=== PATIENT | male | born 1955 | race Caucasian/White ===

== ENCOUNTER 2023-01-04 11:46 | Outpatient (CLI) | payer MEDICARE, SELFPAY ==
--- NOTE | ~2023-01-04 | XR_ITS ---
Clinical Indication: Dyspnea PA and lateral views of the chest: Comparison: None Findings: The lungs are clear, without evidence of focal consolidation or pleural effusion. Cardiome diastinal silhouette is within normal limits. Bones and soft tissues are unremarkable. Impression: Normal chest. Reviewed, dictated and finalized at location . Impression: Normal chest.
== END 2023-01-04 11:47 ==
PROVIDERS: PCP Nurse Practitioner Family; Visit Provider Nurse Practitioner Family
DX: R06.09 Other forms of dyspnea (principal)
CPT/HCPCS: 71046

== ENCOUNTER 2023-06-07 14:32 | Outpatient (CLI) | payer MEDICARE, SELFPAY ==
--- NOTE | ~2023-06-07 | MR_ITS ---
EXAMINATION: MR shoulder LT wo con DATE: 06/07/2023 15:12 INDICATION: Pain in left shoulder . TECHNIQUE: Magnetic resonance imaging (MRI) of the left shoulder was performed without intravenous co ntrast. Sequences included axial PD-weighted FS FSE, coronal oblique PD-weighted FS FSE and T2-weight ed FS FSE, and sagittal oblique T2-weighted FS FSE and T1-weighted FSE. COMPARISON: None. FINDINGS: Coracoacromial arch: Moderate lateral downsloping of the type I acromion. No significant inferior osteophytosis or entheso laureen. Subacromial narrowing. No subcoracoid narrowing. Superior migration of the humeral head. Rotator cuff: Massive superior cuff tear involving the supraspinatus and infraspinatus, with retraction to the 12:0 0 position. Intrasubstance type tear in the infraspinous. Moderate atrophy of the supraspinatus. Mode rate atrophy and fatty atrophy of the infraspinous tendinitis. Severe fatty atrophy of the teres delfino r. Partial-thickness tear and tendinosis of the subscapularis. Biceps tendon and glenoid labrum: Marked thickening and abnormal signal within the displaced long head of biceps tendon. Anteroinferior glenoid labral tear in a background of degenerative change. Fluid: Moderate subacromial subdeltoid and glenohumeral fluid collections. Irregular debris within the infer ior glenohumeral recess. Bones/cartilage: No suspicious focal or diffuse marrow signal. Severe AC joint hypertrophy. Moderate glenohumeral cart ilage narrowing. IMPRESSION: Massive superior cuff tear with retraction and atrophy of the supraspinatus and infraspinous muscles. Severe fatty atrophy of the teres minor. Partial tear and tendinopathy of the subscapularis. Subluxation and severe tendinosis of the long head of biceps tendon. Anteroinferior glenoid labral tear. Moderate subacromial/subdeltoid and glenohumeral fluid. Suggestion of synovitis within the inferior g lenohumeral joint recess. Reviewed, dictated and finalized at location [facility]. [facility] IMPRESSION: Massive superior cuff tear with retraction and atrophy of the supraspinatus and infraspinous muscles. Severe fatty atrophy of the teres minor. Partial tear and tendinopathy of the subscapularis. Subluxation and severe tendinosis of the long head of biceps tendon. Anteroinferior glenoid labral tear. Moderate subacromial/subdeltoid and glenohumeral fluid. Suggestion of synovitis within the inferior glenohumeral joint recess.
== END 2023-06-07 14:33 ==
LOC: MICIMG 14:32
PROVIDERS: PCP Family Medicine; Visit Provider Family Medicine
DX: M75.122 Complete rotator cuff tear or rupture of left shoulder, not specified as traumatic (principal); M62.512 Muscle wasting and atrophy, not elsewhere classified, left shoulder; S46.112A Strain of muscle, fascia and tendon of long head of biceps, left arm, initial encounter; M75.22 Bicipital tendinitis, left shoulder; S43.432A Superior glenoid labrum lesion of left shoulder, initial encounter; X58.XXXA Exposure to other specified factors, initial encounter
CPT/HCPCS: 73221